=== PATIENT | male | born 1985 | race Caucasian/White ===

== ENCOUNTER → 2017-06-01 | Outpatient (CLI) | payer OTHER ==
--- NOTE | 2017-06-01 08:21 | DIAGNOSTIC IMAGING REPORT ---
CHEST 2 VIEWS ROUTINE CLINICAL HISTORY: Left-sided chest pain. COMPARISON STUDY: No previous studies for comparison. FINDINGS: Lung volumes are normal. No pneumothorax or pleural effusion is present. Pulmonary vascularity is normal. Cardiomediastinal silhouette is normal. There is apparent mild left lower lung retrocardiac opacity. IMPRESSION: Apparent left lower lung retrocardiac opacity. This likely reflects normal vessels although a small area of pneumonia could appear similar. If persistent symptoms, radiographic follow-up is recommended. Electronically signed by: Dhaval Juarez M.D. 06/01/2017 8:20 AM Dictated Date/Time: 06/01/2017 8:17 AM
--- NOTE | 2017-06-01 08:26 | DIAGNOSTIC IMAGING REPORT ---
ABDOMEN COMPLETE (US) CLINICAL HISTORY: Abdominal pain. COMPARISON STUDY: No previous studies for comparison. FINDINGS: Liver is sonographically normal. There is no biliary ductal dilatation. The common bile duct measures 5 cm in caliber. The gallbladder is normal. There are no gallstones. The pancreas is largely obscured by overlying bowel gas. The size of the spleen is normal. The right kidney measures 10.8 cm and the left measures 11.1 cm. There is no hydronephrosis. No renal calculi or masses are identified. The caliber of the abdominal aorta is normal. There is no ascites. IMPRESSION: 1. No abnormality within the abdomen by sonography. 2. Largely obscured pancreas due to overlying bowel gas. Electronically signed by: Dhaval Juarez M.D. 06/01/2017 8:24 AM Dictated Date/Time: 06/01/2017 8:23 AM
== END | disposition home or self-care (01) ==
LOC: C.ULTR 06:35
PROVIDERS: ATTEND Family Medicine
DX: R10.84 Generalized abdominal pain (principal); R07.89 Other chest pain; R91.8 Other nonspecific abnormal finding of lung field

== ENCOUNTER → 2017-06-05 | Outpatient (CLI) | payer OTHER ==
--- NOTE | 2017-06-05 16:06 | DIAGNOSTIC IMAGING REPORT ---
CHEST-PA,LAT AND OBLIQUE VIEWS (4 views) CLINICAL HISTORY: FOLLOW UP CHEST PAIN abnormal chest x-ray COMPARISON STUDY: 06/01/2017 FINDINGS: The cardiac and mediastinal contours are normal. Submental views fail to confirm the presence of a left basal airspace opacity. There is no focal pulmonary consolidation. There is no failure. There are no pleural effusions. IMPRESSION: No active disease in the chest. Electronically signed by: Delvin Grande M.D. 06/05/2017 4:05 PM Dictated Date/Time: 06/05/2017 4:04 PM
== END | disposition home or self-care (01) ==
LOC: C.ULTR 15:38
PROVIDERS: ATTEND Family Medicine
DX: R07.89 Other chest pain (principal)